=== PATIENT | male | born 1960 | race Caucasian/White ===

== ENCOUNTER 2020-02-26 08:50 | Observation (INO) | payer BC, OTHER ==
[~2020-02-26] VITALS: Ht 180.3 cm; Wt 93.8 kg
[2020-02-26] MEDS ORDERED: LEVO112T4 PO (10:59)
[2020-02-26] MEDS ORDERED: IRBE150T9 PO (10:59)
[2020-02-26] MEDS ORDERED: SODIUM CHLORIDE 0.9% 1,000 ML IV SCH (11:00)
[2020-02-26] MEDS ORDERED: CEFAZOLIN PMX 1GM/50ML 50 ML IVPB ONE (11:00)
[2020-02-26 11:08] VITALS: BP 143/83
[2020-02-26 11:11] LABS: BASOPHILS % (AUTO) 1 % (0-1); EOSINOPHILS % (AUTO) 3 % (1-7); LYMPHOCYTES % (AUTO) 22 % (22-44); MEAN CORPUSCULAR HEMOGLOBIN 29.3 pg (27.5-34.5); MEAN PLATELET VOLUME 6.9 fL (7.4-10.4); MONOCYTES % (AUTO) 7 % (2-9); NEUTROPHILS % (AUTO) 68 % (42-75); PLATELET COUNT 322 x10^3/uL (130-400); RED BLOOD COUNT 5.54 x10^6/uL (4.38-5.82); RED CELL DISTRIBUTION WIDTH 12.8 % (9.4-14.8)
[2020-02-26 11:16] LABS: INTERNATIONAL NORMALIZED RATIO 1.04 (0.93-1.1)
[2020-02-26 11:17] LABS: ANION GAP 5 mmol/L (5-15); CALCIUM 9.1 mg/dL (8.5-10.1); CHLORIDE 107 mmol/L (98-107); CREATININE 0.98 mg/dL (0.7-1.3); MD NO
[2020-02-26] MEDS ORDERED: LIDOCAINE 2%, 20ML ONE ×2 (11:30→12:17)
[2020-02-26] MEDS ORDERED: MIDAZOLAM 1 MG/ML, 5ML ONE ×2 (11:30→12:30)
[2020-02-26] MEDS: PLEASE ENTER HEIGHT AND WEIGHT MC SCH ×2 (11:30→19:30)
[2020-02-26] MEDS ORDERED: PLEASE ENTER ALLERGIES MC SCH (11:30)
[2020-02-26] MEDS ORDERED: FENTANYL PF 100 MCG/2ML ONE ×2 (11:30→12:30)
[2020-02-26] MEDS ORDERED: ISOPROTERENOL 0.2MG/ML, 5ML ONE (11:30)
[2020-02-26] MEDS ORDERED: CEFAZOLIN PMX 1GM/50ML 50 ML ONE (12:17)
[2020-02-26] MEDS ORDERED: CEFAZOLIN 1,000 MG ONE (12:17)
[2020-02-26] MEDS ORDERED: ACETAMINOPHEN 325 MG TABLET PO PRN (13:30)
[2020-02-26] MEDS ORDERED: HOLD MEDICATION MC PRN (13:30)
[2020-02-26] MEDS: SODIUM CHLORIDE 0.9% 1,000 ML IV SCH ×2 (14:07→19:07)
[2020-02-26] MEDS: CEFAZOLIN PMX 1GM/50ML 50 ML IVPB SCH (19:44)
[2020-02-26 19:50] VITALS: BP 145/89
[2020-02-26] MEDS ORDERED: SODIUM CHLORIDE FLUSH 10ML SYR IVF SCH (21:00)
[2020-02-27 01:59] VITALS: BP 125/77
[2020-02-27] MEDS: SODIUM CHLORIDE 0.9% 1,000 ML IV SCH (03:00)
[2020-02-27] MEDS: PLEASE ENTER HEIGHT AND WEIGHT MC SCH (03:30)
[2020-02-27] MEDS: CEFAZOLIN PMX 1GM/50ML 50 ML IVPB SCH (04:23)
[2020-02-27 07:15] VITALS: BP 121/77
[2020-02-27 08:52] VITALS: BP 131/83
[2020-02-27] MEDS ORDERED: LEVOTHYROXINE 112 MCG TABLET PO SCH (09:00)
[2020-02-27] MEDS ORDERED: IRBESARTAN 150 MG TABLET PO SCH (09:00)
[2020-02-27] MEDS ORDERED: ACET325T26 PO (09:09)
[2020-02-27] MEDS ORDERED: FLU VACC QS2020-21(6MOS UP)/PF 60MCG/0.5 ML SYR IM-VACC ONE (13:00)
== END 2020-02-27 13:00 | disposition home or self-care (01) ==
LOC: CACL 08:50 → 5SO 13:45 → CACL 23:28 → DCLOUNGE 02-27 12:42
PROVIDERS: ADMIT Internal Medicine Cardiovascular Disease; ATTEND Internal Medicine Cardiovascular Disease
DX: I44.1 Atrioventricular block, second degree (principal); Z20.828 Contact with and (suspected) exposure to other viral communicable diseases; I47.2 Ventricular tachycardia; I47.1 Supraventricular tachycardia; I49.8 Other specified cardiac arrhythmias; I10 Essential (primary) hypertension; E11.9 Type 2 diabetes mellitus without complications; G47.30 Sleep apnea, unspecified; R55 Syncope and collapse; Z79.899 Other long term (current) drug therapy; Z23 Encounter for immunization; Z95.0 Presence of cardiac pacemaker
CPT/HCPCS: 33208; 36415; 71045; 71046; 80048; 85025; 85610; 87635; 90471; 90686; 93620; 96365; 96366; 99156; 99157; C1730; C1779; C1785; C1892; C1894; G0378; J0690; J2250; J3010; J3490